=== PATIENT | male | born 1985 | race African-American/Black ===

== ENCOUNTER 2017-07-17 23:04 | Emergency (ER) | payer OTHER ==
[~2017-07-17] VITALS: Ht 188 cm; Wt 80.0 kg
[~2017-07-17 23:04] MED LIST: PERC5TAB12 PO
[2017-07-17 23:06] VITALS: BP 144/78; PULSE 84; RESP 16; TEMP 98.1; O2SAT 98
[2017-07-18] MEDS ORDERED: CLINDAMYCIN INJ 600 MG in SODIUM CHLORIDE 0.9% INJ 100 ML IV ONE (00:15)
[2017-07-18] MEDS ORDERED: SODIUM CHLOR 0.9% 1000 ML INJ 1,000 ML IV ONE (00:15)
[2017-07-18 00:39] LABS: AUTOMATED NEUTROPHIL # 9.1 TH/MM3 (1.8-7.7); BASOPHIL # 0.2 TH/MM3 (0-0.2); BASOPHIL % 1.4 % (0.0-2.0); EOSINOPHIL # 0.3 TH/MM3 (0-0.4); EOSINOPHIL % 2.4 % (0.0-4.0); HEMATOCRIT 41.1 % (39.0-51.0); LYMPHOCYTE # 2.3 TH/MM3 (1.0-4.8); MEAN CELL VOLUME 93.9 FL (80.0-100.0); MEAN CORPUSCULAR HEMOGLOBIN 32.3 PG (27.0-34.0); MEAN CORPUSCULAR HGB CONC 34.4 % (32.0-36.0); MONO % 10.8 % (0.0-8.0); NEUT % 68.4 % (16.0-70.0); PLATELET COUNT 221 TH/MM3 (150-450); RED BLOOD COUNT 4.37 MIL/MM3 (4.50-5.90); RED CELL DISTRIBUTION WIDTH 13.5 % (11.6-17.2); WHITE BLOOD COUNT 13.3 TH/MM3 (4.0-11.0)
[2017-07-18 00:47] LABS: HEMO FLAGS AUTO DIFF
[2017-07-18] MEDS ORDERED: IOHEXOL 350 MG/ML 10 ML VIAL (for RAD DIAG) IVCONTRAST ONE (01:02)
[2017-07-18 01:07] LABS: ALT (GPT) 17 U/L (12-78); ANION GAP 8 MEQ/L (5-15); AST (GOT) 12 U/L (15-37); BICARBONATE 24.2 MEQ/L (21.0-32.0); BLOOD UREA NITROGEN 10 MG/DL (7-18); CHLORIDE 110 MEQ/L (98-107); GLOMERULAR FILTRATION RATE 110 ML/MIN (>89); POTASSIUM 3.5 MEQ/L (3.5-5.1); SODIUM (NA) 142 MEQ/L (136-145)
[2017-07-18 01:09] LABS: ALKALINE PHOSPHATASE 62 U/L (45-117); TOTAL BILIRUBIN ADULT 0.5 MG/DL (0.2-1.0)
--- NOTE | 2017-07-18 01:16 | PD ---
HPI Chief Complaint: Injury Time Seen by Provider: 00:00 Travel History International Travel<30 days: No Contact w/Intl Traveler<30days: No Traveled to known affect area: No History of Present Illness HPI Patient is a 32 year old male who comes in complaining of pain and swelling to his right hand. He says that he was punching a punching bag two weeks ago when he missed and punched a metal piece and sustained to wounds to his hand. He says it was fine until yesterday morning when it became red and swollen. He says he cannot fully bend his right second finger to make a fist. He denies fever or chills. He says it was not a human bite. He denies any other injuries. PFSH Past Medical History Blood Disorders: No Cancer: No Cardiovascular Problems: No Diminished Hearing: No Endocrine: No Genitourinary: No Immune Disorder: No Musculoskeletal: No Neurologic: No Psychiatric: No Reproductive: No Respiratory: Yes (Pneumonia) Tetanus Vaccination: Unknown Past Surgical History Appendectomy: Yes Social History Alcohol Use: Yes (daily) Tobacco Use: Yes Substance Use: Yes (marijuana) Allergies-Medications (Allergen,Severity, Reaction): Coded Allergies: No Known Allergies (Verified , 07/18/17) Reported Meds & Prescriptions Reported Meds & Active Scripts Active No Active Prescriptions or Reported Medications Review of Systems Except as stated in HPI: all other systems reviewed are Neg General / Constitutional: No: Fever, Chills HENT: No: Headaches, Lightheadedness Cardiovascular: No: Chest Pain or Discomfort Respiratory: No: Shortness of Breath Gastrointestinal: No: Nausea, Vomiting Musculoskeletal: Positive: Limited ROM, Edema Skin: Positive Change in Pigmentation, Positive Lesions Neurologic: No: Weakness, Dizziness Physical Exam Narrative GENERAL: Awake and alert, in no acute distress. SKIN: 2 curvilinear wounds at the base of the right second and third fingers with surrounding edema and erythema. HEAD: Atraumatic. Normocephalic. EYES: Pupils equal and round. No scleral icterus. No injection or drainage. ENT: No nasal bleeding or discharge. Mucous membranes pink and moist. NECK: Trachea midline. No JVD. CARDIOVASCULAR: Regular rate and rhythm. No murmur appreciated. RESPIRATORY: No accessory muscle use. Clear to auscultation. Breath sounds equal bilaterally. MUSCULOSKELETAL: No obvious deformities. No clubbing. No cyanosis. Edema of the right hand, no definite fluid collect. Unable to make a fist with the right hand. No issues with flexion or extension of the right second and third fingers. NEUROLOGICAL: Awake and alert. No obvious cranial nerve deficits. Motor grossly within normal limits. Normal speech. PSYCHIATRIC: Appropriate mood and affect; insight and judgment normal. Data Data Last Documented VS Vital Signs Date Time Temp Pulse Resp B/P (MAP) Pulse Ox O2 Delivery O2 Flow Rate FiO2 07/18/17 05:56 07/18/17 04:20 65 16 97 Room Air 07/17/17 23:06 98.1 Orders Orders Iv Access Insert/Monitor (07/18/17 00:05) Complete Blood Count With Diff (07/18/17 00:05) Comprehensive Metabolic Panel (07/18/17 00:05) Ct Hand W Iv Contrast (07/18/17 ) Sodium Chlor 0.9% 1000 Ml Inj (Ns 1000 M (07/18/17 00:15) Clindamycin Inj (Cleocin Inj) (07/18/17 00:15) Iohexol 350 Inj (Omnipaque 350 Inj) (07/18/17 01:02) Asp: Location Of [facility] Admin (Asp Crit: (07/18/17 02:15) [facility]ancin Inj (Dalvance Inj) (07/18/17 02:40) Asp:No Reaction To [facility]/Vanc (Asp Crit (07/18/17 02:45) Asp: Does Not Meet Inpt Admit (Asp Crit: (07/18/17 02:45) Asp: Iv Antibiotics Admit Only (Asp Crit (07/18/17 02:45) Asp: Location Of [facility] Admin (Asp Crit: (07/18/17 02:45) Labs Laboratory Tests Test 07/18/17 00:20 White Blood Count 13.3 TH/MM3 Red Blood Count 4.37 MIL/MM3 Hemoglobin 14.1 GM/DL Hematocrit 41.1 % Mean Corpuscular Volume 93.9 FL Mean Corpuscular Hemoglobin 32.3 PG Mean Corpuscular Hemoglobin Concent 34.4 % Red Cell Distribution Width 13.5 % Platelet Count 221 TH/MM3 Mean Platelet Volume 8.3 FL Neutrophils (%) (Auto) 68.4 % Lymphocytes (%) (Auto) 17.0 % Monocytes (%) (Auto) 10.8 % Eosinophils (%) (Auto) 2.4 % Basophils (%) (Auto) 1.4 % Neutrophils # (Auto) 9.1 TH/MM3 Lymphocytes # (Auto) 2.3 TH/MM3 Monocytes # (Auto) 1.4 TH/MM3 Eosinophils # (Auto) 0.3 TH/MM3 Basophils # (Auto) 0.2 TH/MM3 CBC Comment AUTO DIFF Differential Total Cells Counted 100 Neutrophils % (Manual) 72 % Lymphocytes % 16 % Monocytes % 10 % Eosinophils % 1 % Neutrophils # (Manual) 9.7 TH/MM3 Myelocytes 1 % Differential Comment FINAL DIFF MANUAL Platelet Estimate NORMAL Platelet Morphology Comment NORMAL Tear Drop Cells 1+ Blood Urea Nitrogen 10 MG/DL Creatinine 0.95 MG/DL Random Glucose 107 MG/DL Total Protein 6.9 GM/DL Albumin 3.8 GM/DL Calcium Level 8.4 MG/DL Alkaline Phosphatase 62 U/L Aspartate Amino Transf (AST/SGOT) 12 U/L Alanine Aminotransferase (ALT/SGPT) 17 U/L Total Bilirubin 0.5 MG/DL Sodium Level 142 MEQ/L Potassium Level 3.5 MEQ/L Chloride Level 110 MEQ/L Carbon Dioxide Level 24.2 MEQ/L Anion Gap 8 MEQ/L Estimat Glomerular Filtration Rate 110 ML/MIN MDM Medical Decision Making Medical Screen Exam Complete: Yes Emergency Medical Condition: Yes Medical Record Reviewed: Yes Differential Diagnosis Cellulitis versus abscess versus fracture Narrative Course Patient is a 32-year-old male comes in with pain and swelling to his right hand. He has 2 wounds to the base of his right second and third fingers with surrounding erythema and warmth. IV established, labs sent. Labs show an elevated white blood cell count of 13.2. Given IV fluids and clindamycin. He declines pain medicine at this time. CT of the hand ordered. Patient signed out to oncoming provided to follow up CT and admit. Diagnosis Primary Impression: Cellulitis Qualified Codes: L03.011 - Cellulitis of right finger Scripts No Active Prescriptions or Reported Meds Condition: Marcela Leggett MD Jul 18, 2017 01:16
--- NOTE | 2017-07-18 01:23 | RADRPT ---
EXAM DATE/TIME: 07/18/2017 00:53 [facility] COMPARISON: No previous studies available for comparison. INDICATIONS : Right hand swelling started last night. Traumatic injury 2 weeks ago to knuckles. IV CONTRAST: 71 cc Omnipaque 350 (iohexol) IV RADIATION DOSE: 9.74 CTDIvol (mGy) MEDICAL HISTORY : None SURGICAL HISTORY : Appendectomy. ENCOUNTER: Initial ACUITY: 1 day PAIN SCALE: 7/10 LOCATION: Right hand TECHNIQUE: Volumetric scanning of the hand was performed. Using automated exposure control and adjustment of th e mA and/or kV according to patient size, radiation dose was kept as low as reasonably achievable to obtain optimal diagnostic quality images. DICOM format image data is available electronically for re view and comparison. FINDINGS: No acute fracture or dislocation. Probable remote avulsion injury at the radial styloid and healed fr acture distal fifth metacarpal. There is some subcutaneous edema on the dorsum of the hand predominan tly of the metacarpal region of unknown etiology. CONCLUSION: 1. Subcutaneous edema on the dorsum of the hand, unknown etiology. No drainable fluid collections. Re mote healed fracture of distal fifth metacarpal and radial styloid. No acute bony abnormality. Gary Parson MD on July 18, 2017 at 1:15 Board Certified Radiologist. This report was verified electronically.
[2017-07-18 01:24] LABS: EOSINOPHILS 1 % (0-4); MYELOCYTES 1 % (0-0); NEUTROPHIL # MANUAL DIFF 9.7 TH/MM3 (1.8-7.7); POLYS (SEG NEUTROPHILS) 72 % (16-70); WBC DIFF SAMPLE 100
[2017-07-18 01:25] LABS: PLATELET ESTIMATE SMEAR NORMAL (NORMAL); PLATELET MORPHOLOGY NORMAL (NORMAL); SCAN/DIFF FINAL DIFF MANUAL; TEARDROP RBCS 1+ (NORMAL)
[2017-07-18] MEDS ORDERED: ASP: Location of Dalbavancin administration OTHER ONE ×2 (02:15→02:45)
[2017-07-18] MEDS ORDERED: D5 IV STA ×2 (02:40)
[2017-07-18] MEDS ORDERED: DALBAVANCIN IV STA ×2 (02:40)
[2017-07-18] MEDS ORDERED: ASP: No known hypersensitivity to Vanco, Telavancin, Dalbavancin OTHER ONE (02:45)
[2017-07-18] MEDS ORDERED: ASP: Only reason for admit - IV antibiotics OTHER ONE (02:45)
[2017-07-18] MEDS ORDERED: ASP: Does not meet inpatient admission criteria OTHER ONE (02:45)
[2017-07-18 04:20] VITALS: BP 133/68; PULSE 65; RESP 16; O2SAT 97
--- NOTE | 2017-07-18 05:57 | PD ---
Physical Exam Date Seen by Provider: Jul 18, 2017 Time Seen by Provider: 05:51 Data Data Last Documented VS Vital Signs Date Time Temp Pulse Resp B/P (MAP) Pulse Ox O2 Delivery O2 Flow Rate FiO2 07/18/17 04:20 65 16 133/68 (89) 97 Room Air 07/17/17 23:06 98.1 Orders Orders Iv Access Insert/Monitor (07/18/17 00:05) Complete Blood Count With Diff (07/18/17 00:05) Comprehensive Metabolic Panel (07/18/17 00:05) Ct Hand W Iv Contrast (07/18/17 ) Sodium Chlor 0.9% 1000 Ml Inj (Ns 1000 M (07/18/17 00:15) Clindamycin Inj (Cleocin Inj) (07/18/17 00:15) Iohexol 350 Inj (Omnipaque 350 Inj) (07/18/17 01:02) Asp: Location Of [facility] Admin (Asp Crit: (07/18/17 02:15) [facility] Inj ([facility] Inj) (07/18/17 02:40) Asp:No Reaction To [facility]/Vanc (Asp Crit (07/18/17 02:45) Asp: Does Not Meet Inpt Admit (Asp Crit: (07/18/17 02:45) Asp: Iv Antibiotics Admit Only (Asp Crit (07/18/17 02:45) Asp: Location Of [facility] Admin (Asp Crit: (07/18/17 02:45) Labs Laboratory Tests Test 07/18/17 00:20 White Blood Count 13.3 TH/MM3 Red Blood Count 4.37 MIL/MM3 Hemoglobin 14.1 GM/DL Hematocrit 41.1 % Mean Corpuscular Volume 93.9 FL Mean Corpuscular Hemoglobin 32.3 PG Mean Corpuscular Hemoglobin Concent 34.4 % Red Cell Distribution Width 13.5 % Platelet Count 221 TH/MM3 Mean Platelet Volume 8.3 FL Neutrophils (%) (Auto) 68.4 % Lymphocytes (%) (Auto) 17.0 % Monocytes (%) (Auto) 10.8 % Eosinophils (%) (Auto) 2.4 % Basophils (%) (Auto) 1.4 % Neutrophils # (Auto) 9.1 TH/MM3 Lymphocytes # (Auto) 2.3 TH/MM3 Monocytes # (Auto) 1.4 TH/MM3 Eosinophils # (Auto) 0.3 TH/MM3 Basophils # (Auto) 0.2 TH/MM3 CBC Comment AUTO DIFF Differential Total Cells Counted 100 Neutrophils % (Manual) 72 % Lymphocytes % 16 % Monocytes % 10 % Eosinophils % 1 % Neutrophils # (Manual) 9.7 TH/MM3 Myelocytes 1 % Differential Comment FINAL DIFF MANUAL Platelet Estimate NORMAL Platelet Morphology Comment NORMAL Tear Drop Cells 1+ Blood Urea Nitrogen 10 MG/DL Creatinine 0.95 MG/DL Random Glucose 107 MG/DL Total Protein 6.9 GM/DL Albumin 3.8 GM/DL Calcium Level 8.4 MG/DL Alkaline Phosphatase 62 U/L Aspartate Amino Transf (AST/SGOT) 12 U/L Alanine Aminotransferase (ALT/SGPT) 17 U/L Total Bilirubin 0.5 MG/DL Sodium Level 142 MEQ/L Potassium Level 3.5 MEQ/L Chloride Level 110 MEQ/L Carbon Dioxide Level 24.2 MEQ/L Anion Gap 8 MEQ/L Estimat Glomerular Filtration Rate 110 ML/MIN MDM Medical Record Reviewed: Yes Supervised Visit with DEEPALI: Yes Interpretation(s) CBC & BMP Diagram 07/18/17 00:20 Total Protein 6.9, Albumin 3.8, Calcium Level 8.4 L, Alkaline Phosphatase 62, Aspartate Amino Transf (AST/SGOT) 12 L, Alanine Aminotransferase (ALT/SGPT) 17, Total Bilirubin 0.5 Differential Diagnosis . Narrative Course The case has been discussed with Dr. Sanchez who is agreed to admit the patient. After the patient was evaluated by Dr. Sanchez he has declined admission. He states that he does not want to stay. It was decided that the patient can receive DAL[facility]ANCE 1200 mg and may be discharged AMA Diagnosis Primary Impression: Cellulitis Qualified Codes: L03.011 - Cellulitis of right finger Patient Instructions: General Instructions Additional Instruction: Rest. Elevation. Daily wound care with soap, water, Neosporin. Tylenol or Advil for pain. Recheck with a primary care doctor in the next 1-2 days. Follow-up with a hand doctor within 1 week. Return to the ER. Problems. Med/Other Pt SpecificInfo: Wound Care Scripts No Active Prescriptions or Reported Meds Disposition: AGAINST MEDICAL ADVICE Condition: Stable Gary Luciano Jul 18, 2017 05:57
== END 2017-07-18 05:58 | disposition home or self-care (01) ==
LOC: NEPD 23:04
DX: L03.011 Cellulitis of right finger (principal); Z72.0 Tobacco use
CPT/HCPCS: 73201; 80053; 85007; 85027; 96365; 96367; 99285; J0875; J7030; J7060; Q9967